=== PATIENT | male | born 2000 | race African-American/Black ===

== ENCOUNTER 2024-12-05 18:35 | Inpatient (IN) | payer OTHER ==
[~2024-12-05] VITALS: Ht 162.6 cm; Wt 81.6 kg
[2024-12-05] MEDS ORDERED: IBUP-1114 PO (18:44)
[2024-12-05] MEDS ORDERED: METH-1165 PO (20:00)
[2024-12-05] MEDS ORDERED: KETO-204 PO (20:00)
[2024-12-05] MEDS: ACETAMINOPHEN 325 MG TAB PO ONE (20:01)
[2024-12-05] MEDS: ONDANSETRON 4MG ORAL DISINTEGRATING TAB PO ONE (20:15)
[2024-12-05] MEDS: NS (Normal Saline) 0.9% 1,000 ML IV ONE ×2 (20:20→21:25)
[2024-12-05] MEDS: PANTOPRAZOLE 40MG VIAL IV ONE (20:20)
[2024-12-05 20:55] LABS: BASO # 0.0 10^3/uL (0.0-0.2); BASO % 0.2 % (0.0-1.0); EOS # 0.0 10^3/uL (0.0-0.5); EOS % 0.2 % (0.0-3.0); LYMPH # 1.1 10^3/uL (1.5-5.0); LYMPH % 8.7 % (24.0-44.0); MONO # 1.3 10^3/uL (0.0-0.8); MONO % 10.3 % (2.0-8.0); NEUTROPHILS # 10.1 10^3/uL (1.5-8.5); NEUTROPHILS % 80.1 % (36.0-66.0); PLATELET COUNT, AUTOMATED 155 10^3/uL (150-450)
[2024-12-05] MEDS: MORPHINE 4 MG/ML 1 ML VIAL IV ONE (21:16)
[2024-12-05 21:20] LABS: ALT/SGPT 38.0 U/L (7.0-40); AST/SGOT 36.0 U/L (<34); CALCIUM LEVEL 8.8 MG/DL (8.5-10.1); CARBON DIOXIDE LEVEL 25.0 MMOL/L (20-31); CHLORIDE LEVEL 107.0 MMOL/L (98-107); CREATININE FOR GFR 3.21 MG/DL (0.70-1.30); GLOMERULAR FILTRATION RATE 26.4 (>60); POTASSIUM SERUM 3.6 MMOL/L (3.5-5.1); SODIUM LEVEL 144.0 MMOL/L (136-145)
[2024-12-05] MEDS ORDERED: ISOVUE-370 76% 100 ML VIAL As Ordered ONE (21:20)
[2024-12-05 21:54] LABS: APPEARANCE, URINE CLEAR (CLEAR); BACTERIA, URINE AUTO NEGATIVE (NEGATIVE); BILIRUBIN, URINE AUTO NEGATIVE (NEGATIVE); BLOOD, URINE BLOOD 1+ (NEGATIVE); GLUCOSE, URINE (UA) AUTO NEGATIVE (NEGATIVE); KETONE, URINE AUTO NEGATIVE (NEGATIVE); LEUKOCYTE ESTERASE, URINE AUTO NEGATIVE (NEGATIVE); MUCUS, URINE SMALL (NEGATIVE); NITRITE, URINE AUTO NEGATIVE (NEGATIVE); PROTEIN, URINE AUTO 3+ mg/dL (NEGATIVE); RBC, URINE AUTO 2 /HPF (0-3); SPECIFIC GRAVITY URINE AUTO 1.008 (1.002-1.035); SQUAMOUS EPITHELIAL CELL UR AU 0 /HPF (0-6); UROBILINOGEN, URINE AUTO 0.2 mg/dL (0.0-2.0); WBC, URINE AUTO 2 /HPF (0-3)
[2024-12-05] MEDS: HYDROMORPHONE HCL 0.5 MG/0.5 ML SYRINGE IV PRN (22:25)
[2024-12-05] MEDS ORDERED: ACETAMINOPHEN 325 MG TAB PO PRN (23:15)
[2024-12-05] MEDS: NS (Normal Saline) 0.9% 1,000 ML IV SCH (23:30)
[2024-12-05] MEDS ORDERED: MORPHINE 4 MG/ML 1 ML VIAL IV PRN (23:35)
[2024-12-05] MEDS ORDERED: MELA5TAB10 PO (23:45)
[2024-12-05] MEDS ORDERED: HOME MED LIST COMPLETE! XX SCH (23:50)
[2024-12-06] MEDS: MORPHINE 4 MG/ML 1 ML VIAL IV PRN (03:24)
[2024-12-06] MEDS: ONDANSETRON 4MG 2ML VIAL IV PRN (04:06)
[2024-12-06 07:08] LABS: PLATELET COUNT, AUTOMATED 169 10^3/uL (150-450)
[2024-12-06 07:37] LABS: ALT/SGPT 31.0 U/L (7.0-40); AST/SGOT 33.0 U/L (<34); CALCIUM LEVEL 7.8 MG/DL (8.5-10.1); CARBON DIOXIDE LEVEL 23.0 MMOL/L (20-31); CHLORIDE LEVEL 110.0 MMOL/L (98-107); CREATININE FOR GFR 4.64 MG/DL (0.70-1.30); GLOMERULAR FILTRATION RATE 17.0 (>60); MAGNESIUM LEVEL 2.6 MG/DL (1.8-2.4); POTASSIUM SERUM 4.3 MMOL/L (3.5-5.1); SODIUM LEVEL 146.0 MMOL/L (136-145)
[2024-12-06 08:10] LABS: CPK CREATINE PHOSPHOKINASE 1017.0 U/L (46-171)
[2024-12-06] MEDS: NS (Normal Saline) 0.9% 1,000 ML IV STA (08:33)
[2024-12-06] MEDS: NICOTINE 7 MG/24 HR TRANSDERMAL TD SCH (09:00)
[2024-12-06] MEDS: ACETAMINOPHEN 500 MG TAB PO SCH (09:00)
[2024-12-06] MEDS: PANTOPRAZOLE 40MG VIAL IV SCH (09:02)
[2024-12-06] MEDS: NS 0.45% 1,000 ML IV SCH (12:21)
[2024-12-06] MEDS: LIDOCAINE 5% PATCH TD SCH (12:26)
[2024-12-06 12:38] VITALS: BP 120/73; TEMP 97.9; O2SAT 93
[2024-12-06] MEDS: CYCLOBENZAPRINE 5 MG TABLET PO SCH (13:23)
[2024-12-06] MEDS: HYDROMORPHONE HCL 0.5 MG/0.5 ML SYRINGE IV PRN ×2 (16:48→19:49)
[2024-12-06 17:02] LABS: CALCIUM LEVEL 7.3 MG/DL (8.5-10.1); CARBON DIOXIDE LEVEL 20.0 MMOL/L (20-31); CHLORIDE LEVEL 109.0 MMOL/L (98-107); CREATININE FOR GFR 5.99 MG/DL (0.70-1.30); GLOMERULAR FILTRATION RATE 12.5 (>60); POTASSIUM SERUM 4.7 MMOL/L (3.5-5.1); SODIUM LEVEL 141.0 MMOL/L (136-145)
[2024-12-06 19:11] LABS: CPK CREATINE PHOSPHOKINASE 797.0 U/L (46-171)
[2024-12-06 20:00] VITALS: BP 128/71; TEMP 98.2; O2SAT 94
[2024-12-06] MEDS: SODIUM BICARBONATE 75 MEQ in NS 0.45% 1,000 ML IV SCH (20:27)
[2024-12-07] VITALS (14 sets, daily range): BP systolic 143–145; BP diastolic 80–81; TEMP 97.3–99.7; O2SAT 83–95
[2024-12-07] MEDS: FUROSEMIDE 40 MG/4 ML VIAL IV ONE (00:35)
[2024-12-07] MEDS: FUROSEMIDE 100 MG/10 ML VIAL IV ONE ×2 (06:48→16:32)
[2024-12-07 06:58] LABS: PLATELET COUNT, AUTOMATED 147 10^3/uL (150-450)
[2024-12-07 07:19] LABS: CPK CREATINE PHOSPHOKINASE 625.0 U/L (46-171)
[2024-12-07 07:22] LABS: ALT/SGPT 22.0 U/L (7.0-40); AST/SGOT 17.0 U/L (<34); CALCIUM LEVEL 7.2 MG/DL (8.5-10.1); CARBON DIOXIDE LEVEL 22.0 MMOL/L (20-31); CHLORIDE LEVEL 104.0 MMOL/L (98-107); CREATININE FOR GFR 7.56 MG/DL (0.70-1.30); GLOMERULAR FILTRATION RATE 9.5 (>60); POTASSIUM SERUM 4.1 MMOL/L (3.5-5.1); SODIUM LEVEL 138.0 MMOL/L (136-145)
[2024-12-07] MEDS: LIDOCAINE 5% PATCH TD SCH (20:54)
[2024-12-08 03:43] VITALS: BP 154/80; TEMP 97.7; O2SAT 96
[2024-12-08 07:11] LABS: BASO # 0.0 10^3/uL (0.0-0.2); BASO % 0.1 % (0.0-1.0); EOS # 0.0 10^3/uL (0.0-0.5); EOS % 0.5 % (0.0-3.0); LYMPH # 1.0 10^3/uL (1.5-5.0); LYMPH % 12.0 % (24.0-44.0); MONO # 1.1 10^3/uL (0.0-0.8); MONO % 12.4 % (2.0-8.0); NEUTROPHILS # 6.5 10^3/uL (1.5-8.5); NEUTROPHILS % 74.5 % (36.0-66.0); PLATELET COUNT, AUTOMATED 151 10^3/uL (150-450)
[2024-12-08] MEDS: PERCOCET 5MG/325MG TAB PO ONE (07:33)
[2024-12-08 07:37] LABS: CALCIUM LEVEL 7.7 MG/DL (8.5-10.1); CARBON DIOXIDE LEVEL 24.0 MMOL/L (20-31); CHLORIDE LEVEL 103.0 MMOL/L (98-107); CREATININE FOR GFR 8.48 MG/DL (0.70-1.30); GLOMERULAR FILTRATION RATE 8.2 (>60); POTASSIUM SERUM 3.8 MMOL/L (3.5-5.1); SODIUM LEVEL 139.0 MMOL/L (136-145)
[2024-12-08 12:26] VITALS: BP 138/73; TEMP 97.7; O2SAT 95
[2024-12-08 20:43] VITALS: BP 122/79; TEMP 97.5; O2SAT 95
[2024-12-09 04:07] VITALS: BP 128/79; TEMP 97.5; O2SAT 96
[2024-12-09 07:59] LABS: CALCIUM LEVEL 7.9 MG/DL (8.5-10.1); CARBON DIOXIDE LEVEL 26.0 MMOL/L (20-31); CHLORIDE LEVEL 105.0 MMOL/L (98-107); CREATININE FOR GFR 5.98 MG/DL (0.70-1.30); GLOMERULAR FILTRATION RATE 12.5 (>60); MAGNESIUM LEVEL 2.2 MG/DL (1.8-2.4); POTASSIUM SERUM 3.9 MMOL/L (3.5-5.1); SODIUM LEVEL 145.0 MMOL/L (136-145)
[2024-12-09] MEDS: CYCLOBENZAPRINE 5 MG TABLET PO PRN (08:51)
[2024-12-09 12:27] VITALS: BP 137/79; TEMP 98.1; O2SAT 94
[2024-12-09] MEDS: SENNOSIDES/DOCUSATE SODIUM 8.6 MG/50MG TAB PO SCH (14:49)
[2024-12-09] MEDS: MOM 30 ML SUSPENSION UDC PO ONE (15:07)
[2024-12-09 19:57] VITALS: BP 142/77; TEMP 97.5; O2SAT 93
[2024-12-09] MEDS: PANTOPRAZOLE 40MG TAB PO SCH (21:25)
[2024-12-10 04:22] VITALS: BP 158/82; TEMP 97.5; O2SAT 94
[2024-12-10 07:07] LABS: CALCIUM LEVEL 8.4 MG/DL (8.5-10.1); CARBON DIOXIDE LEVEL 30.0 MMOL/L (20-31); CHLORIDE LEVEL 103.0 MMOL/L (98-107); CREATININE FOR GFR 3.26 MG/DL (0.70-1.30); GLOMERULAR FILTRATION RATE 25.9 (>60); POTASSIUM SERUM 3.6 MMOL/L (3.5-5.1); SODIUM LEVEL 142.0 MMOL/L (136-145)
[2024-12-10] MEDS ORDERED: LIDO5TD TD (09:53)
[2024-12-10] MEDS ORDERED: NICO7PA TD (09:53)
[2024-12-10] MEDS ORDERED: PANT40TA29 PO (09:53)
[2024-12-10] MEDS: FLUZONE VACCINE TRI PF(25-26) 0.5ML SYRINGE IM.IMMUN ONE (10:53)
== END 2024-12-10 11:00 | disposition home or self-care (01) | DRG 682 ==
LOC: M ED 18:35 → M ED INP 23:14 → M MSPAV 12-06 12:39
PROVIDERS: ADMIT Student in an Organized Health Care Education/Training Program; ATTEND General Practice
DX: N17.9 Acute kidney failure, unspecified (principal); J96.01 Acute respiratory failure with hypoxia; M62.82 Rhabdomyolysis; K92.0 Hematemesis; E87.0 Hyperosmolality and hypernatremia; J98.11 Atelectasis; M54.50 Low back pain, unspecified; G44.009 Cluster headache syndrome, unspecified, not intractable; F17.290 Nicotine dependence, other tobacco product, uncomplicated; R09.02 Hypoxemia; D72.829 Elevated white blood cell count, unspecified; E87.70 Fluid overload, unspecified; E86.0 Dehydration; T39.395A Adverse effect of other nonsteroidal anti-inflammatory drugs [NSAID], initial encounter; K29.70 Gastritis, unspecified, without bleeding; T40.2X5A Adverse effect of other opioids, initial encounter; Z88.0 Allergy status to penicillin